=== PATIENT | female | born 1950 | race Caucasian/White ===

== ENCOUNTER → 2017-02-18 | Outpatient (CLI) | payer MEDICARE, OTHER ==
[~2017-02-18] MED LIST: OMG1KC; VIT D; [UNRECOGNIZED DRUG - REMARK]
--- NOTE | 2017-02-19 19:40 | Diagnostic Imaging Report ---
Bilateral screening mammogram 2D views with tomosynthesis The current study was also evaluated with a Computer Aided Detection (CAD) system. Indication: Screening. No current complaints stated on the questionnaire. COMPARISON: 09/29/14 FINDINGS: The breasts are composed of scattered fibroglandular densities. There are scattered benign appearing calcifications. Allowing for technique and positional differences, no suspicious change is seen. IMPRESSION: No significant change. ACR BI-RADS Category 2: Benign findings. Result letter will be mailed to the patient. Note: At least 10% of breast cancer is not imaged by mammography. Dictated by: Dictated on workstation # [id number]
== END ==
LOC: RAD 14:10
PROVIDERS: ATTEND Nurse Practitioner Family
DX: Z12.31 Encounter for screening mammogram for malignant neoplasm of breast (principal)
CPT/HCPCS: 77067

== ENCOUNTER 2017-06-22 08:14 | Emergency (ER) | payer MEDICARE, OTHER ==
[~2017-06-22] VITALS: Ht 162.6 cm; Wt 95.3 kg
--- OUTSIDE RECORDS SUMMARY | 2017-06-22 08:19 | XMS REPORT ---
Author Author MELODY SANDERS Organization [employer] Address Unknown Phone Unavailable Care Team Providers Care Asbestos Textile Supervisor Name Role Phone MELODY SANDERS Unavailable Allergies No Known Allergies Problems Problem Type Condition Code Onset Dates Condition Status Assessment Encounter for immunization Z23 Active Medications No Known Medications Procedures Procedure Coding System Code Date SINGLE IMMUNIZATION ADMIN CPT-4 54720 Feb 13, 2015 FLUARIX QUAD (3 & UP)-GSK-2014 CPT-4 32670 Feb 13, 2015 Results No Known Results Immunizations Vaccine Administration Date FLUARIX QUAD (3 & UP)-GSK-2014Feb 13, 2015 Summary Purpose [employer] Submission
--- OUTSIDE RECORDS SUMMARY | 2017-06-22 08:19 | XMS REPORT ---
Author Author MELODY SANDERS Organization [employer] Address Unknown Phone Unavailable Care Team Providers Care Application Security Specialist Name Role Phone MELODY SANDERS Unavailable Allergies No Known Allergies Problems Problem Type Condition Code Onset Dates Condition Status Assessment Encounter for immunization Z23 Active Medications No Known Medications Procedures Procedure Coding System Code Date PCV 13 CPT-4 16649 Feb 10, 2015 SINGLE IMMUNIZATION ADMIN CPT-4 70046 Feb 10, 2015 TDAP (BOOSTRIX) CPT-4 85913 Feb 10, 2015 IMMUNIZATION ADMIN, EACH ADD (please include units) CPT-4 03463 Feb 10, 2015 Results No Known Results Immunizations Vaccine Administration Date TDAP (BOOSTRIX) Feb 10, 2015 PCV 13 Feb 10, 2015 Summary Purpose [employer] Submission
--- OUTSIDE RECORDS SUMMARY | 2017-06-22 08:19 | XMS REPORT | Continuity of Care Document ---
Author Author [facility] Address Unknown Phone Unavailable Allergies Active Description Code Type Severity Reaction Onset Reported/Identified Relationship to Patient Clinical Status Yes Penicillins [id number] Drug Allergy Mild FAMILY HX OF RE 03/16/2009 Medications There is no data. Problems Date Dx Coded Attending Type Code Diagnosis Diagnosed By 05/07/2012 Ot V54.16 [facility] TRAUMATIC FX LOWER LEG 05/07/2012 Ot V57.1 PHYSICAL THERAPY NEC 09/29/2014 Ot 397.0 09/29/2014 Ot 414.00 09/29/2014 Ot 272.4 09/29/2014 Ot 786.09 09/29/2014 CHAR GARCIA MD Ot V76.12 09/29/2014 CHAR GARCIA MD Ot 782.3 09/29/2014 CHAR GARCIA MD Ot 782.3 10/18/2014 CHAR GARCIA MD Ot V76.12 02/18/2017 CHAR GARCIA MD Ot V76.12 OT SCREEN MAMMO-MALIGN NEOPLASM OF [place]OM[place] 02/18/2017 CHAR GARCIA MD Ot 782.3 EDEMA 02/18/2017 CHAR GARCIA MD Ot 782.3 EDEMA 02/18/2017 CHAR GARCIA MD Ot V76.12 OTH SCREEN MAMMO-MALIGN NEOPLASM OF [place]OMO 03/11/2017 GIBRAN BEAN APRN Ot Z12.31 ENCNTR SCREEN MAMMOGRAM FOR MALIGNANT NE Procedures There is no data. Results There is no data. Encounters ACCT No. Visit Date/Time Discharge Status Pt. Type Provider Facility Loc./Unit Complaint [id number] 02/18/2017 14:10:00 02/18/2017 23:59:59 CLS Outpatient GIBRAN BEAN APRN [facility] RAD SCREENING [id number] 09/29/2014 13:56:00 09/29/2014 23:59:59 CLS Outpatient CHAR GARCIA MD [facility] RAD SCREENING,FAMILY HX CA BR [id number] 12/28/2013 10:48:00 12/28/2013 23:59:59 CLS Outpatient CHAR GARCIA MD [facility] RAD ELEVATED D DIMER, EDEMA [id number] 12/24/2013 14:21:00 12/24/2013 23:59:59 CLS Outpatient CHAR GARCIA MD [facility] LAB BILAT EDEMA [id number] 10/12/2012 10:00:00 10/12/2012 23:59:59 CLS Outpatient CHAR GARCIA MD [facility] RAD SCREENING [id number] 09/29/2014 13:54:00 Document Registration [id number] 09/29/2014 13:54:00 Document Registration [id number] 04/30/2012 08:00:00 Document Registration [id number] 04/30/2010 06:40:00 Document Registration [id number] 12/08/2009 13:20:00 Document Registration
[2017-06-22] MEDS ORDERED: SIMV20TA3 (08:29)
--- NOTE | 2017-06-22 09:47 | Diagnostic Imaging Report ---
PROCEDURE: US right lower extremity venous. TECHNIQUE: Multiple real-time grayscale images were obtained over the right lower extremity in various projections. Additional duplex Doppler and color Doppler images were also obtained. INDICATION: Right lower extremity pain. Findings: The right common femoral, femoral and popliteal veins are patent by color doppler imaging and without DVT. Visualized proximal aspects of the deep femoral, posterior tibial and peroneal veins are also patent. All of the evaluated deep venous structures demonstrate normal compressibility and waveform augmentation where applicable. Impression: No right lower extremity deep venous thrombosis (DVT). Dictated by: Dictated on workstation # [id number]
[2017-06-22 10:42] LABS: BASOPHILS # (AUTO) 0.1 10^3/uL (0.0-0.1); BASOPHILS % (AUTO) 1 % (0-10); EOSINOPHILS # (AUTO) 0.1 10^3/uL (0.0-0.3); EOSINOPHILS % (AUTO) 2 % (0-10); HEMATOCRIT 41 % (35-52); HEMOGLOBIN 13.8 G/DL (11.5-16.0); LYMPHOCYTES % (AUTO) 28 % (12-44); MEAN CORPUSCULAR HEMOGLOBIN 32 PG (25-34); MEAN CORPUSCULAR HGB CONC 34 G/DL (32-36); MEAN CORPUSCULAR VOLUME 94 FL (80-99); MONOCYTES # (AUTO) 0.5 X 10^3 (0.0-1.0); MONOCYTES % (AUTO) 6 % (0-12); NEUTROPHILS # (AUTO) 4.7 X 10^3 (1.8-7.8); NEUTROPHILS % (AUTO) 64 % (42-75); PLATELET COUNT 194 10^3/uL (130-400); RED BLOOD COUNT 4.37 10^6/uL (4.35-5.85); RED CELL DISTRIBUTION WIDTH 11.7 % (10.0-14.5); WHITE BLOOD COUNT 7.4 10^3/uL (4.3-11.0)
[2017-06-22 11:22] LABS: ERYTHROCYTE SEDIMENTATION RATE 11 MM/HR (0-30)
--- NOTE | 2017-06-22 11:35 | ED Lower Extremity ---
General Chief Complaint: Lower Extremity Stated Complaint: FOOT SWELLING Nursing Triage Note: ARRIVED VIA AMB USING A CRUTCH. STATES SHE WOKE UP FRIDAY AM SWITH RIGHT FOOT HURTING AND IT HAS PROGRESSED TO SWELLING AND PAIN. DENIES INJURY. Nursing Sepsis Screen: No Definite Risk Source: patient Exam Limitations: no limitations History of Present Illness Date Seen by Provider: Jun 22, 2017 Time Seen by Provider: 11:32 Initial Comments This 66-year-old white female presents with a complaint of pain over her right foot. There has been no history of trauma. The patient has a history of factor V Leiden pathology. The patient takes a baby aspirin daily. She is concerned that she has thrombophlebitis. Allergies and Home Medications Allergies Coded Allergies: Penicillins (Unverified Allergy, Mild, FAMILY HX OF REACTIONS, 03/16/09) Constitutional: No chills EENTM: No ear pain Respiratory: No cough, No dyspnea on exertion, No short of breath Cardiovascular: No chest pain Gastrointestinal: No abdominal pain, No nausea, No vomiting Genitourinary: no symptoms reported Musculoskeletal: see HPI, other (patient patient has tenderness to palpation over the medial aspect of the right ankle. There is perhaps slight inflammation present.) Skin: No change in color, No rash, other (there is some swelling over the right foot and ankle) Psychiatric/Neurological: No Symptoms Reported Past Ofmiepf-Jvzszh-Lbsvyi Hx Patient Social History Alcohol Use: Denies Use Recreational Drug Use: No Smoking Status: Never a Smoker Recent Foreign Travel: No Contact w/Someone Who Travel: No Recent Infectious Disease Expo: No Surgeries History of Surgeries: Yes (DENTAL) Surgeries: Breast Respiratory History of Respiratory Disorde: No Cardiovascular History of Cardiac Disorders: No Neurological History of Neurological Disord: No Reproductive System Hx Reproductive Disorders: No Sexually Transmitted Disease: No Genitourinary History of Genitourinary Disor: No Gastrointestinal History of Gastrointestinal Di: No Musculoskeletal History of Musculoskeletal Dis: No Endocrine History of Endocrine Disorders: No HEENT History of HEENT Disorders: No Cancer History of Cancer: No Blood Transfusions History of Blood Disorders: Yes (FACTOR 5 ) Physical Exam Vital Signs Vital Signs - First Documented 06/22/17 08:18 Temp 98.0 Pulse 66 Resp 18 B/P (MAP) 157/90 (112) Pulse Ox 98 Capillary Refill : Less Than 3 Seconds General Appearance: WD/WN, no apparent distress HEENT: normal ENT inspection Neck: full range of motion, supple Cardiovascular: normal peripheral pulses, regular rate, rhythm Respiratory: lungs clear, normal breath sounds Gastrointestinal: normal bowel sounds Back: normal inspection Ankles: right ankle pain, right ankle soft tissue tenderness Feet: right foot swelling Neurologic/Tendon: normal sensation, normal motor functions, normal tendon functions, responds to pain Neurologic/Psychiatric: no motor/sensory deficits, alert, normal mood/affect Skin: normal color, warm/dry Progress/Results/Core Measures Results/Orders Lab Results Laboratory Tests Test 06/22/17 10:25 Range/Units White Blood Count 7.4 4.3-11.0 10^3/uL Red Blood Count 4.37 4.35-5.85 10^6/uL Hemoglobin 13.8 11.5-16.0 G/DL Hematocrit 41 35-52 % Mean Corpuscular Volume 94 80-99 FL Mean Corpuscular Hemoglobin 32 25-34 PG Mean Corpuscular Hemoglobin Concent 34 32-36 G/DL Red Cell Distribution Width 11.7 10.0-14.5 % Platelet Count 194 130-400 10^3/uL Mean Platelet Volume 11.0 H 7.4-10.4 FL Neutrophils (%) (Auto) 64 42-75 % Lymphocytes (%) (Auto) 28 12-44 % Monocytes (%) (Auto) 6 0-12 % Eosinophils (%) (Auto) 2 0-10 % Basophils (%) (Auto) 1 0-10 % Neutrophils # (Auto) 4.7 1.8-7.8 X 10^3 Lymphocytes # (Auto) 2.0 1.0-4.0 X 10^3 Monocytes # (Auto) 0.5 0.0-1.0 X 10^3 Eosinophils # (Auto) 0.1 0.0-0.3 10^3/uL Basophils # (Auto) 0.1 0.0-0.1 10^3/uL Erythrocyte Sedimentation Rate 11 0-30 MM/HR Uric Acid 4.3 2.6-7.2 MG/DL My Orders Orders - LUIS QUINN MD Venous Lower Ext Rt (06/22/17 08:26) Cbc With Automated Diff (06/22/17 09:51) Erythrocyte Sedimentation Rate (06/22/17 09:51) Uric Acid (06/22/17 09:51) Vital Signs/I&O Vital Sign - Last 12Hours 06/22/17 08:18 Temp 98.0 Pulse 66 Resp 18 B/P (MAP) 157/90 (112) Pulse Ox 98 Blood Pressure Mean: 112 Progress Note : Time: 11:42 Progress Note The patient's ultrasound of the right foot and right lower extremity was unremarkable. Sedimentation rate and CBC were normal. Uric acid was normal. I discussed findings with patient. She agreed to close follow-up with her physician tomorrow. In the interim I recommended Tylenol 650 mg every 4 hours for her discomfort. She was asked to continue with her compression stocking ice and elevation. She was advised to return should any problems or questions Departure Impression Impression: Primary Impression: Tenosynovitis of ankle Disposition: 01 HOME, SELF-CARE Condition: Unchanged Departure-Patient Inst. Decision time for Depature: 11:43 Referrals: YUDI BRYAN MD (PCP/Family) Primary Care Physician Patient Instructions: Joint Pain Add. Discharge Instructions: Tylenol for pain. Compression stocking. Ice and elevation. Follow-up with the doctor tomorrow. Return if any problems or questions. All discharge instructions reviewed with patient and/or family. Voiced understanding. LUIS QUINN MD Jun 22, 2017 11:35
[2017-06-22 11:48] VITALS: BP 172/89
== END 2017-06-22 11:48 | disposition home or self-care (01) ==
LOC: EDUNIT# 08:14 → ER 08:14
DX: M65.9 Synovitis and tenosynovitis, unspecified (principal); Z88.0 Allergy status to penicillin; Z79.82 Long term (current) use of aspirin
CPT/HCPCS: 36415; 84550; 85025; 85652

== ENCOUNTER → 2019-11-09 | Outpatient (CLI) | payer MEDICARE, OTHER ==
[~2019-11-09] MED LIST changes: +SIMV20TA26
--- NOTE | 2019-11-09 16:11 | Diagnostic Imaging Report ---
INDICATION: Routine screening. Comparison is made with prior mammogram from 02/18/2017 and 09/29/2014. 2-D and 3-D bilateral screening mammography was performed with CAD. Scattered fibroglandular densities are identified bilaterally. The asymmetric density in the outer aspect of the right breast is stable. Both breasts have a fibronodular parenchymal pattern. There are benign calcifications. No new mass or malignant appearing microcalcifications are seen. Axillae are unremarkable. IMPRESSION: BI-RADS Category 2 No mammographic features suspicious for malignancy are identified. ACR BI-RADS Category 2: Benign findings. Result letter will be mailed to the patient. Note: At least 10% of breast cancer is not imaged by mammography. Dictated by: Dictated on workstation # [id number]
== END ==
LOC: RAD 12:45
PROVIDERS: ATTEND Nurse Practitioner Family
DX: Z12.31 Encounter for screening mammogram for malignant neoplasm of breast (principal)
CPT/HCPCS: 77063; 77067

== ENCOUNTER 2020-07-07 05:32 | Outpatient (CLI) | payer MEDICARE ==
[~2020-07-07] VITALS: Ht 162.6 cm; Wt 82.6 kg
[2020-07-10] MEDS ORDERED: CHOL2400 PO (12:47)
[2020-07-10] MEDS ORDERED: CETI-267 PO (12:47)
[2020-07-10] MEDS ORDERED: ASPI-999 PO (12:47)
[2020-07-10] MEDS ORDERED: LORA10CA PO (12:47)
[2020-07-10] MEDS ORDERED: SIMV20TA26 PO (12:47)
[2020-07-10] MEDS ORDERED: ANTI1CAP5 PO (12:47)
== END 2020-07-10 13:13 | disposition home or self-care (01) ==
LOC: PREOP 05:32 → EDSTATUS 09:45 → PREOP 07-10 13:13
PROVIDERS: ATTEND Internal Medicine
DX: Z01.818 Encounter for other preprocedural examination (principal)

== ENCOUNTER 2020-07-14 07:29 | Day surgery (SDC) | payer MEDICARE, OTHER ==
--- NOTE | 2020-07-03 06:45 | HISTORY AND PHYSICAL ---
DATE OF SERVICE: COLONOSCOPY H AND P HISTORY OF PRESENT ILLNESS: The patient is a 69-year-old white female referred by Dr. Tamayo for screening colonoscopy. She has had one other colonoscopy in [address] Bateman and review of his records. She had no evidence for neoplasia at that time. She had diverticulum throughout the colon with no evidence for diverticulitis. She denies any problems with bowel habit change. Noted no bright red blood per rectum or melena. She is not aware of any family history for colon cancer. PAST MEDICAL HISTORY: Significant for hyperlipidemia with no known history of coronary artery disease. PAST SURGICAL HISTORY: She had breast reduction in 1988. Had three lipomas removed in 2008, bilateral cataract performed in 2015 and had ear surgery in 2008 as well. SOCIAL HISTORY: She is retired with no past significant smoking or drinking history. REVIEW OF SYSTEMS: CONSTITUTIONAL: She denies night sweats, chills, fever. Has put on a few pounds over the holidays. No reported unexplained weight loss. GASTROINTESTINAL: As noted in the HPI. CARDIOVASCULAR: She denies chest pain, syncope, presyncope, dyspnea, orthopnea, PND or pedal edema. PULMONARY: The patient denies cough, chest congestion or dyspnea on exertion. FAMILY HISTORY: Father in his 70s of lung cancer and was a heavy smoker, also had history of alcoholism. Mother had a history of melanoma as well as breast cancer and had one sister diagnosed with adenocarcinoma of the lungs in her 60s. PHYSICAL EXAMINATION: GENERAL: Reveals pleasant white female who appeared to be in no acute distress. VITAL SIGNS: Weight 191.4 pounds, blood pressure 112/56. HEENT: Unremarkable. CHEST: Clear to auscultation. CARDIOVASCULAR: Revealed a regular rate and rhythm without murmur, S3 or S4. ABDOMEN: Soft, supple, nontender. No mass or organomegaly noted. Bowel sounds positive in all 4 quadrants. EXTREMITIES: Reveal no cyanosis, clubbing or edema. ASSESSMENT AND PLAN: The patient was set up for screening colonoscopy likely on 07/07/2020. If we are unable to get most likely on 07/14/2020. Prep instructions were given and questions were answered. Electronic medical record was reviewed. Forty-five minutes of care time spent. I thank you for the referral of this pleasant lady. Job ID: [id number] DocumentID: [id number] Dictated Date: 06/28/2020 17:29:20 Varnish Melter Date: 06/28/2020 18:11:59 Dictated By: LUIS ALONZO MD
[~2020-07-14] VITALS: Ht 162.6 cm; Wt 82.6 kg
[~2020-07-14 07:29] MED LIST changes: +ANTI1CAP5 PO; +ASPI-999 PO; +CETI-267 PO; +CHOL2400 PO; +LORA10CA PO; +SIMV20TA26 PO
[2020-07-14] MEDS ORDERED: MIDAZOLAM 2 MG/2 ML (VERSED) VIAL ONE (07:33)
[2020-07-14] MEDS ORDERED: PROPOFOL INJECTION 50 ML IV ONE (07:33)
[2020-07-14] MEDS ORDERED: LACTATED RINGERS 1,000 ML IV ONE (07:39)
[2020-07-14] MEDS ORDERED: LACTATED RINGERS 1,000 ML IV STA (08:04)
--- NOTE | 2020-07-14 08:07 | Pre-Op Note & Conscious Sedat ---
Pre-Operative Progress Note H&P Reviewed The H&P was reviewed, patient examined and no changes noted. Date H&P Reviewed: Jul 14, 2020 Time H&P Reviewed: 08:07 Conscious Sedation Pre-Proced ASA Score 2 For ASA 3 and 4: Consider anesthesia and medical clearance. Also, for patients with a history of failed moderate sedation consider anesthesia. Airway Lungs Heart ASA score ASA 1: a normal healthy patient ASA 2: a patient with a mild systemic disease (mid diabetes, controlled hypertension, obesity ASA 3: a patient with a severe systemic disease that limits activity (angina, COPD, prior Myocardial infarction) ASA 4: a patient with an incapacitating disease that is a constant threat to life (CHF, renal failure) ASA 5: a moribund patient not expected to survive 24 hrs. (ruptured aneurysm) ASA 6: a declared brain- patient whose organs are being harvested. For emergent operations, add the letter E after the classification Mallampati Classification Grade 2 Sedation Plan Analgesia, Amnesia, Plan communicated to team members, Discussed options with patient/fam, Discussed risks with patient/fam The patient is an appropriate candidate to undergo the planned procedure, sedation, and anesthesia. The patient immediately re-assessed prior to indication. LUIS ALONZO MD Jul 14, 2020 08:07
[2020-07-14 08:09] VITALS: BP 136/57
[2020-07-14] MEDS ORDERED: LIDOCAINE JELLY 2% 6 ML SYRINGE MM PRN (08:15)
[2020-07-14] MEDS ORDERED: LIDOCAINE JELLY 2% 6 ML SYRINGE ONE (08:25)
[2020-07-14 09:15] VITALS: BP 108/55
[2020-07-14 09:20] VITALS: BP 124/59
[2020-07-14 09:50] VITALS: BP 155/73
--- NOTE | 2020-07-14 12:24 | Anesthesia-General Post-Op ---
MAC Patient Condition Mental Status/LOC: Same as Preop Cardiovascular: Satisfactory Nausea/Vomiting: Absent Respiratory: Satisfactory Pain: Controlled Complications: Absent Post Op Complications Complications None Follow Up Care/Instructions Patient Instructions None needed. Anesthesiology Discharge Order Discharge Order Patient is doing well, no complaints, stable vital signs, no apparent adverse anesthesia problems. No complications reported per nursing. HAZEL SCHAFFER CRNA Jul 14, 2020 12:24
--- NOTE | 2020-07-14 18:57 | OPERATIVE REPORT ---
DATE OF SERVICE: COLONOSCOPY SUMMARY INDICATION FOR THE PROCEDURE: Screening colonoscopy. DESCRIPTION OF PROCEDURE: The patient was placed in the left lateral decubitus position. Prior to undergoing colonoscopy, digital rectal evaluation was performed. Anal sphincter tone was normal and the perianal reflexes intact. No abnormalities were noted on digital inspection of anal canal or distal rectal vault. The colonoscope was then inserted into the rectum and under direct visualization advanced to cecum. The cecum was identified by identification of the ileocecal valve and cecal strap. Photographic documentation was obtained. Quality of prep was good. FINDINGS: There were no evidence for internal or external hemorrhoids and the rectum was unremarkable. Moderate number of small to medium size sigmoid diverticulum were present with haustral hypertrophy, but no evidence for acute diverticulitis. The descending colon, splenic flexure, transverse colon, hepatic flexure, ascending colon and cecum were unremarkable to visual inspection. ASSESSMENT: Moderate diverticular disease confined to the sigmoid colon was present without evidence for diverticulitis. This is otherwise normal colonoscopy to the cecum. We will advocate consideration for repeat screening colonoscopy in approximately 10 years as the patient is not aware of any family history for colon cancer. I thank you for the referral of this pleasant lady. Job ID: [id number] DocumentID: [id number] Dictated Date: 07/14/2020 12:22:36 Plastic Cutter Date: 07/14/2020 18:56:35 Dictated By: LUIS ALONZO MD
== END 2020-07-14 10:03 | disposition home or self-care (01) ==
LOC: ENDO 07:29
PROVIDERS: ATTEND Internal Medicine
DX: Z12.11 Encounter for screening for malignant neoplasm of colon (principal); K57.30 Diverticulosis of large intestine without perforation or abscess without bleeding; E66.9 Obesity, unspecified; E78.5 Hyperlipidemia, unspecified; K63.89 Other specified diseases of intestine; Z88.0 Allergy status to penicillin; Z68.31 Body mass index [BMI] 31.0-31.9, adult; Z98.890 Other specified postprocedural states; Z79.82 Long term (current) use of aspirin; Z79.899 Other long term (current) drug therapy; Z80.1 Family history of malignant neoplasm of trachea, bronchus and lung; Z80.3 Family history of malignant neoplasm of breast; Z80.8 Family history of malignant neoplasm of other organs or systems

== ENCOUNTER 2020-12-25 13:39 | Outpatient (RCR) | payer MEDICARE | END 2021-01-18 14:00 | disposition home or self-care (01) | PROVIDERS: ATTEND Nurse Practitioner Family | DX: M54.12 Radiculopathy, cervical region (principal) ==

== ENCOUNTER → 2021-03-13 | Outpatient (CLI) | payer MEDICARE ==
--- NOTE | 2021-03-13 20:02 | Diagnostic Imaging Report ---
INDICATION: Routine screening. COMPARISON is made with prior mammograms from 11/09/2019 and 02/18/2017. 2-D and 3-D bilateral screening mammography was performed CAD. Scattered fibroglandular densities are identified bilaterally. The parenchymal pattern is stable. No mass or malignant-appearing microcalcifications are seen. There are benign calcifications. The axillae are unremarkable. IMPRESSION: BI-RADS Category 2 No mammographic features suspicious for malignancy are identified. ACR BI-RADS Category 2: Benign findings. Result letter will be mailed to the patient. Note: At least 10% of breast cancer is not imaged by mammography. Dictated by: Dictated on workstation # [id number]
== END ==
LOC: RAD 13:45
PROVIDERS: ATTEND Nurse Practitioner Family
DX: Z12.31 Encounter for screening mammogram for malignant neoplasm of breast (principal)
CPT/HCPCS: 77063; 77067

== ENCOUNTER 2021-08-16 05:29 | Outpatient (CLI) | payer MEDICARE ==
[~2021-08-16] VITALS: Ht 162.6 cm; Wt 84.1 kg
[2021-08-16] MEDS ORDERED: BIOT1POW3 MC (14:30)
[2021-08-16] MEDS ORDERED: NAPR220C11 PO (14:30)
== END 2021-08-16 14:49 | disposition home or self-care (01) ==
LOC: PREOP 05:29
PROVIDERS: ATTEND Surgery
DX: Z01.818 Encounter for other preprocedural examination (principal)

== ENCOUNTER 2021-08-22 08:55 | Day surgery (SDC) | payer MEDICARE ==
[~2021-08-22] VITALS: Ht 162.6 cm; Wt 84.1 kg
[2021-08-22] VITALS (8 sets, daily range): BP systolic 121–153; BP diastolic 59–76
[~2021-08-22 08:55] MED LIST changes: +BIOT1POW3 MC; +NAPR220C11 PO
[2021-08-22] MEDS ORDERED: LACTATED RINGERS 1,000 ML IV PRN (09:15)
[2021-08-22] MEDS ORDERED: CLINDAMYCIN 600 MG/50 ML IVPB 50 ML IV ONE (09:15)
--- NOTE | 2021-08-22 09:16 | Progress Note-Pre Operative ---
Pre-Operative Progress Note H&P Reviewed The H&P was reviewed, patient examined and no changes noted. Time Seen by Provider: 09:13 Date H&P Reviewed: Aug 22, 2021 Time H&P Reviewed: 09:13 Pre-Operative Diagnosis: right arm mass, site marked MARCI RAYMOND DO Aug 22, 2021 09:16
[2021-08-22] MEDS ORDERED: LIDOCAINE/EPI 2% 1:100,00 (XYLOCAINE) 20 ML VIAL ONE (09:17)
[2021-08-22] MEDS ORDERED: PROPOFOL INJECTION 50 ML IV ONE (09:47)
[2021-08-22] MEDS ORDERED: MIDAZOLAM 2 MG/2 ML (VERSED) VIAL ONE (09:47)
--- NOTE | 2021-08-22 10:30 | Progress Note-Post Operative ---
Post-Operative Progess Note Surgeon (s)/Photo Machine Operator (s) Surgeon MARCI RAYMOND DO Photo Machine Operator: LISSETH Underwood Pre-Operative Diagnosis right arm mass, site marked Post-Operative Diagnosis same pending path Procedure & Operative Findings Date of Procedure 08/22/21 Procedure Performed/Findings Exc right arm mass, 6.1cm incision Anesthesia Type IV sedation by MOTOR LODGE CLERK Estimated Blood Loss Estimated blood loss (mL): scant Specimens/Packing Specimens Removed mass 6 x 5.5 x 1cm MARCI RAYMOND DO Aug 22, 2021 10:30
[2021-08-22] MEDS ORDERED: ACHD5005 PO (10:31)
--- NOTE | 2021-08-22 10:32 | Discharge Inst-Surgical ---
Discharge Inst-Surgical Depart Medication/Instructions New, Converted or Re-Newed RX: Transmitted to Pharmacy Patient Instructions Follow up Appt: Make appointment for 1 week. [phone] Instructions: No lifting greater than 20 pounds. No strenuous activity. May shower in 24 hours, no tub bath or soaking. Use incentive spirometer at home as directed. No Smoking Skin/Wound Care: May remove bandages in am. You need to leave the sutures in place and come in to clinic and have them removed. Symptoms to Report: Appetite Changes, Extremity Discoloration, Numbness/Tingling, Swelling Increased, Bleeding Excessive, Eyesight Changes, Pain Increased, Urine Color Change, Constipation(Persistent), Fever over 101 degree F, Pain/Pressure in chest, Urinating Difficulty, Cough Up/Vomit Blood, Heart Beat Irreg/Pounding, Pain/Pressure in jaw, Cramps in feet or legs, Lightheadedness, Pain/Pressure in shoulder, Diarrhea(Persistent), Memory Changes Suddenly, Questions/Concerns, Weight gain consecutive days, Dizziness/Fainting, Nausea/Vomiting, Shortness of Breath, Weight gain over 2 pounds If questions or concerns contact your physician Or seek help at emergency department. Activity Activity Instructions: Avoid Stress to Incision Driving Instructions: No Driving/Refer to Diet Discharge Diet: No Restrictions Diet After 24 Hours: Clear Liquid if Nauseous If Any Problems/Questions/Issu: Contact Your Physician, Go to Emergency Room Skin/Wound Care Infection Signs and Symptoms: Increased Redness, Foul Odor of Wound, Increased Drainage, Skin Itchy or Has a Rash, Increased Swelling, Temperature Above 101 F Bathing Instructions: Shower Stitches/Teri/Dermabond Dis: Care of MARCI Vincent DO Aug 22, 2021 10:32
[2021-08-22] MEDS ORDERED: morphine INJ 10 MG/ML 1ML (SYR OR VIAL) IVP ONE (10:45)
[2021-08-22] MEDS ORDERED: MEPERIDINE (DEMEROL) INJ 50 MG/ML IVP ONE (10:45)
[2021-08-22] MEDS ORDERED: ONDANSETRON 4 MG/2 ML (SDV) Z0FRAN IVP PRN (10:45)
[2021-08-22] MEDS ORDERED: fentaNYL INJ 100 MCG/2 ML AMP IVP ONE (10:45)
--- NOTE | 2021-08-22 15:38 | OPERATIVE REPORT ---
DATE OF SERVICE: 08/22/2021 PREOPERATIVE DIAGNOSIS: Right arm mass. POSTOPERATIVE DIAGNOSIS: Right arm mass, pending pathology. PROCEDURE: Excision of subcutaneous mass, mass measured 6.1 cm incision. SURGEON: Stu Raymond DO FINANCIAL SALES PROFESSIONAL: Cyrus Green MS3 ANESTHESIA: IV sedation by the MANAGER [employer]. SPECIMEN: Mass measuring 6 x 5.5 x 1 cm. BLOOD LOSS: Scant. FLUIDS: Per anesthesia. POSTOPERATIVE CONDITION: Stable. INDICATION FOR PROCEDURE: The patient is a 70-year-old female who has a mass in the right arm. She has actually had removed 2 other times, once in 1991 and once in 2002. States it last about 10 years. It has been bothering her and getting bigger. She wanted it removed. FINDINGS: The patient had a mass, looked most likely lipoma, measured 6 x 5.5 x 1, sent to pathology. PROCEDURE NOTE: After informed consent was obtained, the patient was brought to the operating room, placed on the table in supine position. She was sterilely prepped and draped in normal fashion. Local lidocaine then used to infiltrate the skin over this mass, right along the site of previous incision as well as then around it and regional block, then made an incision with #15 blade, carried down through the skin into subcutaneous tissue. This was 6.1 cm incision measured, then created flaps in the lateral medial direction to go around this mass and then started dissecting down around it trying to get the graft completely removed. It was down to right on top of the muscle, but looked like it was above the fascia, removed this mass en bloc and passed off table, measured 6 x 5.5 x 1. There was small portion of the fat looked like it may have been and may be growing. Next, this was removed as well measured about 1 cm, copiously irrigated with normal saline. Hemostasis was obtained using Bovie electrocautery, then closed the skin with 3-0 nylon 3 vertical mattress sutures and four simple interrupted sutures. Area was cleaned and dried, dressing placed. The patient tolerated the procedure. Sponge, instrument and needle count correct at the end of the case. Job ID: [id number] DocumentID: [id number] Dictated Date: 08/22/2021 10:28:[address] Radio Installer Date: 08/22/2021 15:38:00 Dictated By: STU RAYMOND DO
== END 2021-08-22 12:13 | disposition home or self-care (01) ==
LOC: SDC 08:55
PROVIDERS: ATTEND Surgery
DX: D17.21 Benign lipomatous neoplasm of skin and subcutaneous tissue of right arm (principal); E66.9 Obesity, unspecified; Z68.32 Body mass index [BMI] 32.0-32.9, adult; D68.51 Activated protein C resistance
CPT/HCPCS: 87081; 88304

== ENCOUNTER → 2021-10-23 | Outpatient (CLI) | payer MEDICARE ==
[~2021-10-23] MED LIST changes: +ACHD5005 PO
--- NOTE | 2021-10-23 13:57 | Diagnostic Imaging Report ---
INDICATION: Postmenopausal screening for osteoporosis COMPARISON: None FINDINGS: AP Spine L1-L4: [BMD (g/cm2): 1.454] [T-Score: 2.1] [Z-Score: 3.3] [BMD Previous: na] [BMD % Change: na] LT Hip Neck: [BMD (g/cm2): 0.837] [T-Score: -1.4] [Z-Score: -0.1] LT Hip Total: [BMD (g/cm2):0.924] [T-Score:-0.7] [Z-Score: 0.5] [BMD Previous: na] [BMD % Change: na] RT Hip Neck: [BMD (g/cm2):0.807] [T-Score:-1.7] [Z-Score:-.3] RT Hip Total: [BMD (g/cm2):0.908] [T-score:-0.8] [Z-Score:0.3] [BMD Previous:na] [BMD % Change:na] *Indicates significant change from prior examination based on 95% confidence level. World Health Organization criteria for BMD interpretation classify patients as Normal (T-score at or above -1.0), Osteopenic (T-score between -1.0 and -2.5) or Osteoporotic (T-score at or below -2.5). LIMITATIONS AND MODIFICATION: None. FRACTURE RISK (FRAX SCORE): The ten year probability of (%): Major Osteoporotic Fracture: [16.1] Hip Fracture: [2.6] IMPRESSION: 1. Normal bone mineral density. 2. Baseline examination. 3. See below National Osteoporosis Foundation guidelines on when to potentially initiate pharmacologic therapy. Based on the National Osteoporosis Foundation Guidelines, pharmacologic treatment should be initiated in any of the following, unless clinical conditions suggest otherwise: * Any patient with prior fragility fracture of the hip or vertebrae. A spine fracture indicates 5X risk for subsequent spine fracture and 2X risk for subsequent hip fracture. * Osteoporosis (T-score <-2.5). * Postmenopausal women and men age 50 and older with low bone mass/osteopenia (T-score between -1.0 and -2.5) by DXA and 10-year major osteoporotic fracture greater than 20% or a 10-year probability of hip fracture greater than 3%. These fracture risks are supplied above in the FRAX score, if applicable. * Clinician judgement and/or patient preferences may indicate treatment for people with 10-year fracture probabilities above or below these levels. Dictated by: Dictated on workstation # [id number]
== END ==
LOC: RAD 13:00
PROVIDERS: ATTEND Nurse Practitioner Family
DX: Z13.820 Encounter for screening for osteoporosis (principal); Z78.0 Asymptomatic menopausal state
CPT/HCPCS: 77080

== ENCOUNTER → 2022-12-09 | Outpatient (CLI) | payer MEDICARE ==
--- NOTE | 2022-12-09 16:04 | Diagnostic Imaging Report ---
INDICATION: Routine screening. Comparison is made with prior mammogram from 03/13/2021 and 11/09/2019. 2-D and 3-D bilateral screening mammography was performed with CAD. Scattered fibroglandular densities are identified bilaterally. The parenchymal pattern is stable. No dominant mass or malignant-appearing microcalcifications are seen. There are benign calcifications bilaterally. Axillae are unremarkable. IMPRESSION: No mammographic features suspicious for malignancy are identified. ACR BI-RADS Category 2: Benign findings. Result letter will be mailed to the patient. Note: At least 10% of breast cancer is not imaged by mammography. BI-RADS Category 2 Dictated by: Dictated on workstation # [id number]
== END ==
LOC: RAD 14:45
PROVIDERS: ATTEND Family Medicine
DX: Z12.31 Encounter for screening mammogram for malignant neoplasm of breast (principal)
CPT/HCPCS: 77063; 77067